=== PATIENT | male | born 1960 | race Caucasian/White ===

== ENCOUNTER 2022-11-24 09:45 | Emergency (ER) | payer OTHER ==
[~2022-11-24] VITALS: Ht 175.3 cm; Wt 79.4 kg
[2022-11-24 09:54] VITALS: BP_SYST 108
--- NOTE | 2022-11-24 09:59 | NUR ---
Pt BIBA C/O Pt C/O dizziness, SOB. No N/V AOX4 VSS Able to make needs known Will continue to monitor
--- NOTE | 2022-11-24 09:59 | NUR ---
ER at bedside examining patient.
[2022-11-24 10:55] LABS: BASOPHILS % (AUTO) 0.3 % (0.0-2.0); EOSINOPHILS # (AUTO) 0.1 K/uL (0.0-0.4); EOSINOPHILS % (AUTO) 1.1 % (0.0-4.0); HEMATOCRIT 43.9 % (36-54); HEMOGLOBIN 14.4 g/dL (14.0-18.0); LYMPHOCYTES # (AUTO) 1.3 K/uL (1.0-5.5); LYMPHOCYTES % (AUTO) 9.9 % (20.5-51.5); MEAN CORPUSCULAR HEMOGLOBIN 29 pg (27-31); MEAN CORPUSCULAR HGB CONC 33 % (32-36); MEAN CORPUSCULAR VOLUME 89 fL (79.0-98.0); MONOCYTES # (AUTO) 0.9 K/uL (0.0-1.0); MONOCYTES % (AUTO) 6.6 % (1.7-9.3); NEUTROPHILS # (AUTO) 10.7 K/uL (1.8-7.7); NEUTROPHILS % (AUTO) 82.1 % (40.0-70.0); PLATELET COUNT (AUTO) 158 K/uL (130-430); RED BLOOD CELL COUNT(AUTO) 4.95 MIL/uL (4.2-6.2); RED CELL DISTRIBUTION WIDTH 13.2 % (9.0-15.0)
[2022-11-24 11:15] LABS: ALANINE AMINOTRANSFERASE 52 U/L (12-78); ALBUMIN 3.8 g/dL (3.4-4.8); ANION GAP 5 (5-15); ASPARTATE AMINOTRANSFERASE 49 U/L (10-37); CALCIUM 9.8 mg/dL (8.4-11.0); CHLORIDE 104 mmol/L (98-107); CREATININE 1.29 mg/dL (0.55-1.30); GFR AFRICAN AMERICAN 73 mL/min (>90); GLUCOSE 85 mg/dL (70-99); TOTAL BILIRUBIN 0.9 mg/dL (0.0-1.0); UREA NITROGEN, BLOOD 16 mg/dL (8-21)
[2022-11-24] MEDS ORDERED: ASPIRIN 81 MG TAB.CHEW PO ONE (11:45)
[2022-11-24] MEDS ORDERED: NITROGLYCERIN 1 INCH (GM) OINT. TP ONE (11:45)
[2022-11-24] MEDS ORDERED: iohexoL 350 mgI/mL, 100 ML INFUS..BTL IV ONE (12:48)
[2022-11-24] MEDS ORDERED: HEPARIN 25,000 UNITS/D5W 250ML 250 ML IV ONE (13:45)
[2022-11-24] MEDS ORDERED: HEPARIN SODIUM,PORCINE 5,000 UNITS/ML VIAL IVP ONE (13:45)
[2022-11-24 13:51] VITALS: BP_SYST 126
--- NOTE | 2022-11-24 13:51 | NUR ---
Pt resting comfortably in bed NAD at this time AOX4 VSS Able to make needs known Will continue to monitor
[2022-11-24 14:09] LABS: PROTHROMBIN TIME 10.7 SECS (9.5-12.5)
--- NOTE | 2022-11-24 16:33 | NUR ---
Pt resting comfortably in bed NAD at this time AOX4 VSS Able to make needs known Will continue to monitor family bedside
--- NOTE | 2022-11-24 17:56 | NUR ---
Patient to be transferred to [facility]. Is being transferred due to higher level of care. Receiving facility has accepting physician and available space. ER physician has signed transfer form. Patient or responsible libertarian has agreed to transfer and signed form. Patient belongings inventoried and will be sent with patient. Copy of nursing notes, lab reports, EKG, Physicians Orders and X-rays to be sent with patient. Report called to [place] at receiving facility. Receiving physician is Dr Raúl Guevara. ambulance service [facility] has been called for transfer. ETA is 1700.
--- NOTE | 2022-11-24 17:58 | NUR ---
[facility] gh[facility] unable to transport patient with heparin, MD Palomino made aware [facility] to transport rate at 1000U/hr
== END 2022-11-24 17:58 | disposition short-term general hospital (02) ==
LOC: SED 09:45
DX: I26.99 Other pulmonary embolism without acute cor pulmonale (principal); R06.02 Shortness of breath; R06.00 Dyspnea, unspecified; R07.9 Chest pain, unspecified; I10 Essential (primary) hypertension; Z79.899 Other long term (current) drug therapy
CPT/HCPCS: 99291; 71275; 96365; 71045; 96375; 80053; 83880; 85025; 85379; 85610; 85730; 84484; 36415; 93005; 74175; 99292; 76376; Q9967; J1644 ×2